=== PATIENT | male | born 1960 | race Caucasian/White ===

== ENCOUNTER 2017-01-16 16:21 | Outpatient (CLI) | payer SELFPAY ==
--- NOTE | 2017-01-16 16:51 | DIAGNOSTIC IMAGING REPORT ---
PROCEDURE: XR LUMBAR SPINE 2 OR 3 VIEWS INDICATION: Acute low back pain with left sciatic upper TECHNIQUE: Three views of the lumbar spine COMPARISON: None FINDINGS: Five lumbar-type vertebral bodies are present. Normal vertebral body height without fracture. Normal AP and transverse alignment. Moderate disc height loss L4-5 and L5-S1 with small endplate spurs at L5-S1. Minimal facet sclerosis at L5-S1. The visible osseous pelvis and bowel gas pattern are normal. IMPRESSION: 1. No acute fractures. 2. Disc height loss at L4-5 and L5-S1 with mild endplate degeneration at L5-S1.
--- NOTE | 2017-01-16 16:55 | DIAGNOSTIC IMAGING REPORT ---
PROCEDURE: XR CERVICAL SPINE 2 OR 3 VIEW INDICATION: NECK PAIN TECHNIQUE: Three views of the cervical spine were obtained. COMPARISON: None. FINDINGS: The cervical vertebral bodies are intact without fracture. Moderate anterior and mild posterior endplate spurring C4, C5, and C6. Grade 1 anterolisthesis C3-4 and trace retrolisthesis C4-5. Moderately severe disc height loss C4-5 and C5-6. Mild height loss at C6-7. No transverse subluxation. Minor facet degeneration. There is no prevertebral soft-tissue swelling or suspicious calcification. The airway is patent. The soft tissues of the neck appear normal. IMPRESSION: Moderate chronic-appearing disc endplate degeneration C4-5 and C5-6. This results in trace spondylolisthesis at these levels.
== END 2017-01-16 23:00 ==
LOC: XR SRH 16:21
DX: M51.37 Other intervertebral disc degeneration, lumbosacral region (principal); R29.890 Loss of height; M50.322 Other cervical disc degeneration at C5-C6 level; M50.31 Other cervical disc degeneration, high cervical region

== ENCOUNTER 2017-06-06 10:21 | Outpatient (CLI) | payer SELFPAY ==
--- NOTE | 2017-06-06 11:13 | DIAGNOSTIC IMAGING REPORT ---
PROCEDURE: XR WRIST 1 OR 2 VIEWS BILAT INDICATION: PX IN LEFT WRIST TECHNIQUE: Four views. COMPARISON: None. FINDINGS: Osseous structures and joint spaces are normal. If an occult scaphoid fracture is suspected clinically, follow-up examination in 10-14 days may be of assistance. IMPRESSION: 1. Normal bilateral wrist.
== END 2017-06-06 23:00 ==
LOC: XR SRH 10:21
DX: M25.532 Pain in left wrist (principal)